=== PATIENT | female | born 1980 | race Caucasian/White ===

== ENCOUNTER 2021-09-12 14:57 | Emergency (ER) | payer BC ==
[~2021-09-12] VITALS: Ht 154.9 cm; Wt 55.0 kg
[2021-09-12 15:07] VITALS: BP 163/88
[2021-09-12] MEDS ORDERED: LIDOcaine 1% W/epiNEPHrine 1:200,000 10ml vial IJ ONE (15:55)
[2021-09-12] MEDS ORDERED: TETanus/Pertussis (Acell)/Diphther VAC/PF (Tdap-Adult) 0.5ml syringe IMVAC ONE (15:55)
--- NOTE | 2021-09-12 15:56 | NUR ---
dressing applied to id site.
[2021-09-12] MEDS ORDERED: SULF1TAB45 PO (16:05)
== END 2021-09-12 17:04 | disposition home or self-care (01) ==
LOC: ER 14:58
DX: L02.416 Cutaneous abscess of left lower limb (principal)
CPT/HCPCS: 10060; 90471; 90715; 99283